=== PATIENT | female | born 1990 ===

== ENCOUNTER 2020-10-11 05:06 | Inpatient (IN) | payer MEDICAID ==
[~2020-10-11] VITALS: Ht 170.2 cm; Wt 76.7 kg
[2020-10-11] MEDS ORDERED: DESV100T PO (05:29)
[2020-10-11] MEDS ORDERED: ATOM18CA PO (05:29)
[2020-10-11] MEDS ORDERED: ONDANSETRON ODT 4 MG PO PRN (05:30)
[2020-10-11] MEDS ORDERED: ACETAMINOPHEN 325 MG TABLET PO PRN (05:30)
[2020-10-11] MEDS: PLEASE ENTER ALLERGIES MC SCH ×5 (07:00→13:08)
[2020-10-11 07:28] VITALS: BP 105/73
[2020-10-11 08:02] LABS: CHOL/HDL RATIO 3.7; FREE T4 (FREE THYROXINE) 0.94 ng/dL (0.76-1.46); LDL/HDL RATIO 2.4 (0.5-3.0)
[2020-10-11] MEDS ORDERED: PLEASE ENTER HEIGHT AND WEIGHT MC SCH (08:30)
[2020-10-11 11:58] VITALS: BP 101/69
[2020-10-11 14:12] LABS: CHOL/HDL RATIO 3.8; FREE T4 (FREE THYROXINE) 0.91 ng/dL (0.76-1.46); LDL/HDL RATIO 2.4 (0.5-3.0)
[2020-10-11] MEDS: NICOTINE 21 MG/24 HR PATCH.TD24 TD SCH (14:19)
[2020-10-11] MEDS: SERTRALINE 50MG TABLET PO SCH (14:19)
[2020-10-11] MEDS: OLANZAPINE 2.5 MG TABLET PO SCH (17:11)
[2020-10-11 19:25] VITALS: BP 88/61
[2020-10-11] MEDS: BUSPIRONE 10 MG TABLET PO SCH (20:54)
[2020-10-11] MEDS: DOXEPIN 25 MG CAPSULE PO SCH (20:54)
[2020-10-11] MEDS ORDERED: QUETIAPINE 100MG TABLET PO SCH (21:00)
[2020-10-11] MEDS: DOCUSATE 100 MG CAPSULE PO PRN (21:01)
[2020-10-12 06:39] LABS: BASOPHILS % (AUTO) 2 % (0-1); EOSINOPHILS % (AUTO) 0 % (1-7); LYMPHOCYTES % (AUTO) 29 % (22-44); MD NO; MEAN CORPUSCULAR HGB CONC 34.7 g/dL (32.4-35.8); MEAN PLATELET VOLUME 7.5 fL (7.4-10.4); MONOCYTES % (AUTO) 11 % (2-9); NEUTROPHILS % (AUTO) 58 % (42-75); PLATELET COUNT 215 x10^3/uL (130-400); RED BLOOD COUNT 4.14 x10^6/uL (3.82-5.3); RED CELL DISTRIBUTION WIDTH 12.6 % (9.6-15.2)
[2020-10-12 06:53] LABS: ALANINE AMINOTRANSFERASE 26 U/L (12-78); ALBUMIN 3.8 g/dL (3.4-5.0); ANION GAP 5 mmol/L (5-15); CALCIUM 8.6 mg/dL (8.5-10.1); CHLORIDE 106 mmol/L (98-107)
[2020-10-12 06:57] LABS: ALKALINE PHOSPHATASE 40 U/L (45-117); BILIRUBIN,TOTAL 1.1 mg/dL (0.2-1.0); CREATININE 0.76 mg/dL (0.55-1.02); TOTAL PROTEIN 7.1 g/dL (6.4-8.2)
[2020-10-12] MEDS ORDERED: IBUPROFEN 200 MG TABLET ONE (07:45)
[2020-10-12] MEDS: IBUPROFEN 200 MG TABLET PO PRN ×2 (07:49→18:29)
[2020-10-12 08:18] VITALS: BP_SYST 82; BP_SYST 92; BP_DIAS 49; BP_DIAS 62
[2020-10-12] MEDS: SERTRALINE 50MG TABLET PO SCH (08:29)
[2020-10-12] MEDS: BUSPIRONE 10 MG TABLET PO SCH ×3 (08:29→20:33)
[2020-10-12 09:02] VITALS: BP 93/59
[2020-10-12] MEDS: NICOTINE 21 MG/24 HR PATCH.TD24 TD SCH (10:45)
[2020-10-12] MEDS: OLANZAPINE 2.5 MG TABLET PO SCH (17:26)
[2020-10-12 19:40] VITALS: BP 101/68
[2020-10-12] MEDS: DOXEPIN 25 MG CAPSULE PO SCH (20:33)
[2020-10-12] MEDS: DOCUSATE 100 MG CAPSULE PO PRN (20:33)
[2020-10-12 22:17] LABS: MICROSCOPIC INDICATED
[2020-10-13] MEDS: IBUPROFEN 200 MG TABLET PO PRN ×2 (06:20→14:26)
[2020-10-13 07:00] VITALS: BP 95/63
[2020-10-13] MEDS: NICOTINE 21 MG/24 HR PATCH.TD24 TD SCH (08:42)
[2020-10-13] MEDS: BUSPIRONE 10 MG TABLET PO SCH ×3 (08:42→20:55)
[2020-10-13] MEDS: SERTRALINE 50MG TABLET PO SCH (08:42)
[2020-10-13] MEDS: OLANZAPINE 2.5 MG TABLET PO SCH (16:56)
[2020-10-13 20:10] VITALS: BP 104/70
[2020-10-13] MEDS: DOXEPIN 25 MG CAPSULE PO SCH (20:55)
[2020-10-13] MEDS: POLYETHYLENE GLYCOL 17 GM PACKET PO PRN (20:56)
[2020-10-14 07:36] VITALS: BP 93/62
[2020-10-14] MEDS: NICOTINE 21 MG/24 HR PATCH.TD24 TD SCH (08:27)
[2020-10-14] MEDS: BUSPIRONE 10 MG TABLET PO SCH ×3 (08:27→20:27)
[2020-10-14] MEDS: SERTRALINE 50MG TABLET PO SCH (08:28)
[2020-10-14] MEDS: IBUPROFEN 200 MG TABLET PO PRN (08:59)
[2020-10-14] MEDS: OLANZAPINE 2.5 MG TABLET PO SCH (16:45)
[2020-10-14] MEDS: POLYETHYLENE GLYCOL 17 GM PACKET PO PRN (18:26)
[2020-10-14 20:04] VITALS: BP 99/65
[2020-10-14] MEDS: DOCUSATE 100 MG CAPSULE PO PRN (20:27)
[2020-10-14] MEDS: DOXEPIN 25 MG CAPSULE PO SCH (20:27)
[2020-10-15 07:40] VITALS: BP 96/63
[2020-10-15] MEDS: NICOTINE 21 MG/24 HR PATCH.TD24 TD SCH (08:42)
[2020-10-15] MEDS: BUSPIRONE 10 MG TABLET PO SCH (08:42)
[2020-10-15] MEDS: SERTRALINE 50MG TABLET PO SCH (08:42)
[2020-10-15] MEDS ORDERED: DOXE25CA PO (09:52)
[2020-10-15] MEDS ORDERED: NICO-587 TD (09:52)
[2020-10-15] MEDS ORDERED: SERT100T32 PO (09:52)
[2020-10-15] MEDS ORDERED: OLAN2.5T10 PO (09:52)
[2020-10-15] MEDS ORDERED: BUSP10TA PO (09:52)
[2020-10-16] MEDS ORDERED: SERTRALINE 100MG TABLET PO SCH (09:00)
== END 2020-10-15 13:27 | disposition home or self-care (01) | DRG 885 ==
LOC: 3E 06:37
PROVIDERS: ADMIT Psychiatry & Neurology Psychosomatic Medicine; ATTEND Psychiatry & Neurology Psychosomatic Medicine
DX: F33.3 Major depressive disorder, recurrent, severe with psychotic symptoms (principal); R45.851 Suicidal ideations; F10.21 Alcohol dependence, in remission; F41.1 Generalized anxiety disorder; F43.10 Post-traumatic stress disorder, unspecified; F60.3 Borderline personality disorder; F17.200 Nicotine dependence, unspecified, uncomplicated; F12.10 Cannabis abuse, uncomplicated; G47.00 Insomnia, unspecified; Z79.899 Other long term (current) drug therapy; Z88.0 Allergy status to penicillin; Z91.040 Latex allergy status; Z82.5 Family history of asthma and other chronic lower respiratory diseases
CPT/HCPCS: 36415; 71045; 80053; 80061; 81001; 82140; 82607; 84439; 84443; 85025; 87086; 93005